=== PATIENT | female | born 1995 | race Two or more races ===

== ENCOUNTER 2017-11-23 12:36 | Emergency (ER) | payer SELFPAY ==
[~2017-11-23] VITALS: Ht 154.9 cm; Wt 64.9 kg
[2017-11-23 12:59] LABS: BILIRUBIN,URINE NEGATIVE (NEG); CLARITY,URINE CLEAR; COLOR,URINE YELLOW; NITRITE,URINE NEGATIVE (NEG); PH,URINE 6.5; PROTEIN,URINE NEGATIVE (NEG-TRACE); UROBILINOGEN,URINE 0.2 mg/dL (0.2 mg/dL)
[2017-11-23 13:18] LABS: BACTERIA,URINE 0 /HPF (0-FEW); RBC,URINE 0 /HPF (0-2); SQUAMOUS EPITHELIAL CELL,UR FEW /LPF
--- NOTE | 2017-11-23 14:15 | PHYS DOC ---
Past Medical History Past Medical History: No Pertinent History Past Surgical History: Alcohol Use: None Drug Use: None Adult General Chief Complaint Chief Complaint: PAIN ON URINATION [facility] HPI Patient is a 22 year old female who presents to the ER with complaints of increased urinary frequency and dysuria off and on for the last 6 months. Pt states that for the last 3 days she has had a fever up to 100.6, right sided low back pain, irregular vaginal discharge with sour odor, itching, and vaginal spotting. She states she had a baby in July and had an IUD placed afterwards. LMP was 3 weeks ago. She denies any nausea, vomiting, diarrhea, or abdominal pain. Currently she rates her discomfort as a 7 out of 10 on the pain scale. Review of Systems Review of Systems Constitutional: reports fevers x3 days HENT: Denies nasal congestion or sore throat [] Respiratory: Denies cough or shortness of breath [] Cardiovascular: No additional information not addressed in HPI [] GI: Denies abdominal pain, nausea, vomiting, or diarrhea [] : Denies hematuria, reports dysuria, R low back pain, urinary frequency, vaginal itching, irregular sour smelling vaginal discharge, and vaginal spotting x3 days. Musculoskeletal: reports R low back pain Neurologic: Denies headache, focal weakness or sensory changes [] All other systems were reviewed and found to be within normal limits, except as documented in this note. Current Medications Current Medications Current Medications Medications (Trade) Dose Ordered Sig/Adriana Start Time Stop Time Status Last Admin Dose Admin Acetaminophen (Tylenol) 1,000 mg 1X ONCE 11/23/17 14:30 11/23/17 14:31 DC 11/23/17 14:23 1,000 MG Azithromycin (Zithromax) 1,000 mg 1X ONCE 11/23/17 14:00 11/23/17 14:03 DC 11/23/17 14:18 1,000 MG Ceftriaxone Sodium (Rocephin Im) 250 mg 1X ONCE 11/23/17 14:00 11/23/17 14:03 DC 11/23/17 14:18 250 MG Allergies Allergies Allergies Coded Allergies Type Severity Reaction Last Updated Verified No Known Drug Allergies 11/23/17 No Physical Exam Physical Exam Constitutional: Well developed, well nourished, no acute distress, non-toxic appearance. [] HENT: Normocephalic, atraumatic, bilateral external ears normal, nose normal. [ ] Eyes: PERRLA, conjunctiva normal, no discharge. [] Pelvic Exam: Community Liaison present Abdomen: Soft, Nontender External Genitalia: Normal Skin Speculum: Normal vaginal tissues, large amount of thick yellow discharge in vaginal vault, IUD strings present in cervix with moderate amount of cervical discharge noted Bimanual: No adnexal masses or tenderness, mild CMT Skin: Warm, dry, no erythema, no rash. [] Back: R CVA tenderness Neurologic: Alert and oriented X 3, normal motor function, normal sensory function, no focal deficits noted. [] Psychologic: Affect normal, judgement normal, mood normal. [] Current Patient Data Vital Signs Vital Signs Date Time Temp Pulse Resp B/P (MAP) Pulse Ox O2 Delivery O2 Flow Rate FiO2 11/23/17 12:56 99.8 118 18 113/67 (82) 96 Room Air 99.8 Lab Values Laboratory Tests Test 11/23/17 12:48 11/23/17 12:52 Urine Collection Type Unknown Urine Color Yellow Urine Clarity Clear Urine pH 6.5 Urine Specific [place] 1.015 Urine Protein Negative mg/dL (NEG-TRACE) Urine Glucose (UA) Negative mg/dL (NEG) Urine Ketones (Stick) 40 mg/dL (NEG) Urine Blood Moderate (NEG) Urine Nitrite Negative (NEG) Urine Bilirubin Negative (NEG) Urine Urobilinogen Dipstick 0.2 mg/dL (0.2 mg/dL) Urine Leukocyte Esterase Small (NEG) Urine RBC 0 /HPF (0-2) Urine WBC 5-10 /HPF (0-4) Urine Squamous Epithelial Cells Few /LPF Urine Bacteria 0 /HPF (0-FEW) POC Urine HCG, Qualitative Hcg negative (Negative) Microbiology 11/23/17 Wet Prep - Final, Complete EKG EKG [] Radiology/Procedures Radiology/Procedures [] Course & Med Decision Making Course & Med Decision Making Pertinent Labs and Imaging studies reviewed. (See chart for details) PID, urinary tract infection. Prescription for ciprofloxacin written. Patient was treated prophylactically with 250 mg of IM Rocephin, and 1 g of PO Zithromax. Patient was instructed to avoid having intercourse until the results of gonorrhea and chlamydia testing were available, patient was notified that these results would not be available for 48 hours. If one or both of these tests is positive, patient needs to refrain from intercourse for approximately 2 weeks following the treatment of any current partners. [] Dragon Disclaimer Dragon Disclaimer This electronic medical record was generated, in whole or in part, using a voice recognition dictation system. Departure Departure Impression: Primary Impression: Dysuria Additional Impressions: Urinary tract infection Contact with and (suspected) exposure to infections with a predominantly sexual mode of transmission Pelvic inflammatory disease (PID) Disposition: HOME, SELF-CARE Condition: STABLE Referrals: NO PCP (PCP) Patient Instructions: Pelvic Inflammatory Disease, [id number], Urinary Tract Infection, [id number] Additional Instructions: Fill the prescription and use it as directed. Increase fluid intake, avoid bladder irritants such as caffeine, acetic beverages, and carbonation. Avoid having intercourse until the results of gonorrhea and chlamydia testing are available. These results will not be available for 48 hours. If one or both of these tests is positive, you need to refrain from intercourse for approximately 2 weeks following the treatment of any current partners. Follow up with your OBGYN next week. Return to the ER if your symptoms worsen. [] Scripts Ciprofloxacin Hcl (CIPRO) 500 Mg Tablet 1 TAB PO BID, #20 TAB Prov: FREDERICK RUVALCABA APRN 11/23/17 Problem Qualifiers Additional Impressions: Urinary tract infection Urinary tract infection type: site unspecified Hematuria presence: with hematuria Qualified Codes: N39.0 - Urinary tract infection, site not specified ; R31.9 - Hematuria, unspecified FREDERICK RUVALCABA APRN Nov 23, 2017 14:15
[2017-11-23] MEDS: AZITHROMYCIN 250 MG TABLET. PO ONE (14:18)
[2017-11-23] MEDS: cefTRIAXone IM 250 MG VIAL IM ONE (14:18)
[2017-11-23] MEDS: ACETAMINOPHEN 500 MG TABLET PO ONE (14:23)
[2017-11-23] MEDS ORDERED: CIPR500T94 PO (15:17)
[2017-11-23 15:24] VITALS: BP 130/77
[2017-11-24 15:25] LABS: GC PROBE Negative (Negative)
== END 2017-11-23 15:33 | disposition home or self-care (01) ==
LOC: ER 12:36
DX: N39.0 Urinary tract infection, site not specified (principal); N89.8 Other specified noninflammatory disorders of vagina; Z20.2 Contact with and (suspected) exposure to infections with a predominantly sexual mode of transmission; N73.9 Female pelvic inflammatory disease, unspecified; Z98.890 Other specified postprocedural states
CPT/HCPCS: 81001; 81025; 87086; 87491; 87591; 96372; 99284; J0696; Q0111; Q0144